=== PATIENT | male | born 1995 | race African-American/Black ===

== ENCOUNTER 2018-02-02 00:03 | Observation (INO) | payer OTHER ==
[2018-02-02] MEDS ORDERED: ACETAMINOPHEN 325 MG TABLET. PO (00:45)
[2018-02-02] MEDS ORDERED: ONDANSETRON PF 4 MG/2 ML VIAL. IV (00:45)
[2018-02-02] MEDS: oxyCODONE/APAP 10/325 1 TAB TABLET PO ×2 (01:18→11:58)
[2018-02-02] MEDS: MORPHINE SULFATE 2 MG/ML DISP.SYRIN. IV (01:18)
[2018-02-02] MEDS: IV NORMAL SALINE 1000ML BAG 1,000 ML IV (01:22)
[2018-02-02 04:37] LABS: ADD MAN DIFF? NO
[2018-02-02 04:49] LABS: BASO % 1 % (0-3); EOS # 0.3 x10^3/uL (0.0-0.7); EOS % 3 % (0-3); HEMATOCRIT 39.3 % (39.0-53.0); HEMOGLOBIN 13.8 g/dL (13.0-17.5); LYMPH % 25 % (24-48); MEAN CORPUSCULAR HEMOGLOBIN 32 pg (25-35); MEAN CORPUSCULAR HGB CONC 35 g/dL (31-37); MEAN CORPUSCULAR VOLUME 90 fL (79-100); MONO # 0.9 x10^3/uL (0.0-1.1); MONO % 12 % (0-9); NEUT # 4.8 x10^3uL (1.8-7.7); NEUT % 60 % (31-73); PLATELET COUNT 194 x10^3/uL (140-400); RED BLOOD COUNT 4.36 x10^6/uL (4.30-5.70); RED CELL DISTRIBUTION WIDTH 13.3 % (11.5-14.5)
[2018-02-02 05:15] LABS: ANION GAP 7 (6-14); BLOOD UREA NITROGEN 10 mg/dL (8-26); CALCIUM 8.3 mg/dL (8.5-10.1); CARBON DIOXIDE 29 mmol/L (21-32); CHLORIDE 106 mmol/L (98-107); CREATININE 0.9 mg/dL (0.7-1.3); GFR 125.4; GLUCOSE 141 mg/dL (70-99); POTASSIUM 3.1 mmol/L (3.5-5.1); SODIUM 142 mmol/L (136-145)
[2018-02-02] MEDS: ceFAZolin SODIUM IV Push 1 GM VIAL. IVP (05:43)
[2018-02-02] MEDS ORDERED: ceFAZolin SODIUM 1 GM in IV DEXTROSE 5% 50 ML IV (06:00)
[2018-02-02] MEDS: oxyCODONE/APAP 5/325 1 TAB TABLET PO (09:42)
== END 2018-02-02 13:35 | disposition home or self-care (01) ==
LOC: 4 NORTH 00:03
DX: S41.031A Puncture wound without foreign body of right shoulder, initial encounter (principal); F17.210 Nicotine dependence, cigarettes, uncomplicated; W34.00XA Accidental discharge from unspecified firearms or gun, initial encounter
CPT/HCPCS: 36415; 80048; 85025; 96361; 96374; 96375; G0378; G0379; J0690; J2270; J7030